=== PATIENT | female | born 1930 | race Caucasian/White ===

== ENCOUNTER 2017-09-03 10:55 | Emergency (ER) | payer OTHER ==
[~2017-09-03] VITALS: Ht 160 cm; Wt 77.1 kg
[~2017-09-03 10:55] MED LIST: DELSYM30 MG/5 ML; DIOVAN320 MG; HYTRIN2 MG; INDAPAMIDE2.5 MG; LEVSIN0.125 MG PO; MECLIZINE HCL25 MG PO; NORVASC5 MG PO; TRAMADOL HCL-AP1 TAB PO; ZANTAC300 MG PO
== END 2017-09-03 18:45 | disposition home or self-care (01) ==
LOC: ER 10:55
DX: K59.09 Other constipation (principal); R10.84 Generalized abdominal pain

== ENCOUNTER 2017-09-07 11:59 | Emergency (ER) | payer OTHER ==
[~2017-09-07] VITALS: Ht 162.6 cm; Wt 77.1 kg
[2017-09-07] MEDS ORDERED: INTESTINEX680 M1 PO (15:16)
[2017-09-07] MEDS ORDERED: CIPRO500 MG PO (15:16)
[2017-09-07] MEDS ORDERED: FLAGYL500MG PO (15:16)
[2017-09-07] MEDS ORDERED: ULTRACET PO (15:16)
== END 2017-09-07 16:11 | disposition home or self-care (01) ==
LOC: ER 11:59
DX: R10.32 Left lower quadrant pain (principal); K57.32 Diverticulitis of large intestine without perforation or abscess without bleeding

== ENCOUNTER → 2019-10-20 | Emergency (ER) | payer OTHER ==
[~2019-10-20] VITALS: Ht 152.4 cm; Wt 79.4 kg
[~2019-10-20] MED LIST changes: +ATORVASTATIN CA40 MG; +CIPRO500 MG PO; +FLAGYL500MG PO; +HYDROCHLOROTHIA25 MG; +INTESTINEX680 M1 PO; +MICARDIS80 MG; +PROTONIX40 MG PO; +TIROSINT25 MCG; +ULTRACET PO
== END | disposition home or self-care (01) ==
LOC: ER 21:37
DX: N39.0 Urinary tract infection, site not specified (principal); K59.09 Other constipation; K57.30 Diverticulosis of large intestine without perforation or abscess without bleeding; R10.31 Right lower quadrant pain